=== PATIENT | female | born 1935 | race Caucasian/White ===

== ENCOUNTER 2016-09-16 18:52 | Observation (INO) | payer MEDICARE, OTHER ==
[~2016-09-16] VITALS: Ht 160 cm; Wt 64.0 kg
[2016-09-16 19:00] VITALS: BP 152/113; PULSE 74; RESP 17
--- NOTE | 2016-09-16 19:04 | ED.REPORT ---
HPI-Neurologic Deficit Date of Service Sep 16, 2016 ED Provider: Ronan Patel DO Pt is an 81 year old female with a history of CVA, and HTN who presents to the ED complaining of perioral numbness onset this morning. She c/o associated numbness in her hands, and headache. The family reports that the pt had a stroke on 08/11/16, and had recently been discharged from rehab. The pt was also cleared to walk without her walker. Later tonight, the pt got up to go to the bathroom, when she grabbed her walker and started trying to walk on the dog which is abnormal for her. The pt was taking Plavix and Aspirin for 30 days, and was taken off of Aspirin yesterday. Nursing Notes Stated Complaint: HEADACHE,ANXIETY Chief Complaint: Neuro Symptoms/ Deficits Nursing Notes Reviewed: Yes Allergies: Coded Allergies: sumatriptan (Verified Allergy, Unknown, Due to CVA, 09/16/16) indomethacin (Verified Adverse Reaction, Unknown, Nausea, 09/16/16) Scheduled Allopurinol (Allopurinol) 300 Mg Tablet 300 MG PO DAILY Aspirin (Aspirin) 81 Mg Tablet 81 MG PO DAILY Atorvastatin (Lipitor) 20 Mg Tablet 20 MG PO HS Calcium Carbonate/Vitamin D3 (Calcium 500 + Vit D 200 Tablet) 1 Each Tablet 1 EACH PO TID Clopidogrel (Clopidogrel) 75 Mg Tablet 75 MG PO DAILY Cyanocobalamin (Vitamin B12) 500 Mcg Tablet 1,000 MCG PO every other day Famotidine (Pepcid) 20 Mg Tablet 20 MG PO DAILY Gabapentin (Gabapentin) 300 Mg Capsule 300 MG PO TID Metoprolol Succinate ER (Metoprolol Succinate ER) 25 Mg Tab.er.24h 25 MG PO HS Multivitamin,Therapeutic (Thera) 1 Each Tablet 1 EACH PO DAILYWM [place]-3/Dha/Epa/Fish Oil (Fish Oil 1,000 mg Softgel) 1 Each Capsule 1 EACH PO DAILY Sennosides/Docusate Sodium (Senna-Docusate Sodium Tablet) 1 Each Tablet 1 EACH PO BID Thiamine Mononitrate (Vitamin B-1) 100 Mg Tablet 100 MG PO DAILY Scheduled PRN Acetaminophen (Acetaminophen) 325 Mg Tablet 650 MG PO Q6H PRN PRN For Pain Amoxicillin (Amoxicillin) 500 Mg Tablet 2,000 MG PO ONCE PRN PRN dental appointment Melatonin (Melatonin 1 mg Tablet) 1 Each Tablet 3 MG PO HS PRN PRN Insomnia General Time Seen by Provider: 19:04 Chief Complaint Other (Numbness face) Hx Obtained From: Patient Arrived By: Walk-in Sudden in Onset?: No Onset Occurred: 1 - 4 hours ago Symptom Duration: Duration unknown Location: : Head Quality: Painful Severity: Current: No pain currently Severity: Maximum: Moderate Recent Healthcare: Recent doctor visit, Recent hospitalization Similar Sx Previous: Yes Past Medical History Past Medical History CVA - 08/11/16 HTN Denies: Congestive heart failure, Diabetes mellitus Past Surgical History Bilateral hip Hysterectomy Smoking History Unknown if Ever Smoker Social History Alcohol Use: Denies alcohol use Drug Use: Denies drug use Other Social History: Good social support Ambulatory Status Independent Review of Systems Respiratory: Denies: Non-productive cough, Shortness of breath Neurologic: Reports: Confusion, Headache, Numbness Complete sys rev & neg: except as marked. Physical Exam Initial Vital Signs Vital Signs (First) Date Time Temp Pulse Resp B/P Pulse Ox O2 Delivery O2 Flow Rate FiO2 09/16/16 19:00 36.8 74 17 152/113 09/16/16 21:23 96 Room Air Initial VS: Reviewed ENT: Mucous membranes moist, Conjunctiva normal, No scleral icterus Neck: Supple, Full range of motion Abdomen / GI: Soft, Non-tender Extremities: Vascular intact, Neuro intact Skin: Warm, Dry, No cyanosis Psychiatric: Mood/affect normal, Behavior normal General/Constitutional: Awake, Alert, Cooperative, Not toxic appearing Head / Eyes: Atraumatic, Normocephalic, PERRL, EOMI Respiratory / Chest: Atraumatic, Breath sounds NL, Breath sounds = bilat Cardiovascular: Heart rate NL, Regular rhythm, Heart sounds NL Neurologic: Oriented X3, Speech NL, CN II - XII intact Possible decreased sensation in the palm of her right hand Interpretation & Diagnostics Lab Results Interpretation Result Diagram: 09/16/16190909/16/161909 Test 09/16/16 19:10 09/16/16 20:25 White Blood Count 7.1th/mm3 (3.8-10.1) Red Blood Count 4.44mil/mm3 (3.90-5.20) Hemoglobin 13.5g/dL (12.0-15.6) Hematocrit 40.9% (35.0-46.0) Mean Corpuscular Volume 92.1fL (81-100) Mean Corpuscular Hemoglobin 30.4pg (27.0-35.0) Mean Corpuscular Hemoglobin Concent 33.0% (32.0-37.0) Red Cell Distribution Width 14.2% (12.3-15.4) Platelet Count 283bil/L (150-400) Neutrophils (%) (Auto) 60.0% (40-74) Lymphocytes (%) (Auto) 27.4% (14-46) Monocytes (%) (Auto) 9.1% (4-12) Eosinophils (%) (Auto) 2.8% (0-5) Basophils (%) (Auto) 0.6% (0-3) Prothrombin Time 10.2sec (8.1-12.5) Prothromb Time International Ratio 0.95ratio Sodium Level 134mEq/L (134-144) Potassium Level 3.6mEq/L (3.5-5.2) Chloride Level 96mEq/L (97-108) Carbon Dioxide Level 25mmol/L (18-29) Blood Urea Nitrogen 12mg/dL (8-27) Creatinine 0.77mg/dL (0.57-1.00) Estimat Glomerular Filtration Rate 103mL/min (>59) Glucose Level 108mg/dL (60-99) Calcium Level 10.1mg/dL (8.5-10.1) Magnesium Level 1.8mg/dL (1.6-2.6) Total Bilirubin 0.5mg/dL (0.0-1.2) Aspartate Amino Transf (AST/SGOT) 25U/L (0-50) Alanine Aminotransferase (ALT/SGPT) 26U/L (0-32) Alkaline Phosphatase 68U/L (25-165) Troponin T < 0.010ug/L (0.0-0.011) Total Protein 6.7g/dL (6.4-8.4) Albumin 4.1g/dL (3.4-5.0) Triglycerides Level 139mg/dL (0-149) Cholesterol Level 142mg/dL (100-199) LDL Cholesterol, Calculated 61.200mg/dL (0-99) VLDL Cholesterol 27.800mg/dL HDL Cholesterol 53mg/dL (>39) Cholesterol/HDL Ratio 2.68 (0.0-4.4) Urine Color Yellow (YELLOW) Urine Appearance Clear (CLEAR,HAZY) Urine pH 8.0 (5.0-8.0) Urine Specific [place] 1.010 (1.003-1.035) Urine Protein Negativemg/dL (NEG,TRACE) Urine Glucose (UA) Negativemg/dL (NEGATIVE) Urine Ketones Negativemg/dL (NEGATIVE) Urine Occult Blood Negative (NEGATIVE) Urine Nitrite Negative (NEGATIVE) Urine Bilirubin Negative (NEGATIVE) Urine Urobilinogen Normalmg/dL (NORMAL) Urine Leukocyte Esterase Small (NEGATIVE) Urine RBC 0-2/hpf (0-2) Urine WBC 0-5/hpf (0-5) Urine Epithelial Cells Few/hpf (NONE-MOD) Urine Crystals None seen (NONE SEEN) Urine Bacteria Few/hpf (NONE-FEW) Urine Hyaline Casts None/lpf (NONE) Urine Granular Casts None seen (NONE SEEN) Urine Waxy Casts None seen (NONE SEEN) Urine Red Blood Cell Casts None seen (NONE SEEN) Urine White Blood Cell Casts None seen (NONE SEEN) Urine Mucus None seen (None Seen) Urine Trichomonas None seen (NONE SEEN) Urine Yeast None (NONE SEEN) Urinalysis Comment None ECG Interpretation ECG Interpretation: Sinus rhythmw with a rate of 66. Low voltage, precordial leads Time: 19:15 Interpreted by: ED physician X-Ray Chest Interpretation Chest Xray Interpretation: IMPRESSION: No acute cardiopulmonary disease process. Dictated by: Hortensia Aranda MD, PhD on 09/16/2016 at 20:00 View: Portable, 1 view Interpretation / Wet Read by: Interpret - Radiologist CT Head Interpretation IMPRESSION: No acute intracranial disease process. Dictated by: Hortensia Aranda MD, PhD on 09/16/2016 at 19:59 Study: Head CT no contrast Interpretation / Wet Read by: Interpret - Radiologist Re-Eval/Medical Decision Med Decision/Clinical Course Completely resolved stroke symptoms. Negative head CT. TIA diagnosed. Aspirin therapy initiated. Will be admitted to the hospitalist service for further evaluation and treatment. Re-Evaluation/Progress : Time of Eval: 20:54 Re-Evaluation/Progress Note: Pt rechecked. Informed pt of plan for admission. Pt understands and agrees with plan for admission. All questions addressed Consultation : Referral / Consult Name: Kory Elliott MD Consulted With: Hospitalist Call Returned at: 20:54 Voice Coach: Will see patient, Agrees with eval, Agrees with plan, Accepts admit Counseled Regarding: Diagnosis, Lab results, Need for admission Discharge & Departure Impression: Primary Impression: TIA (transient ischemic attack) Transient cerebral ischemia type: unspecified Qualified Code: G45.9 - Transient cerebral ischemic attack, unspecified Disposition: ADMITTED TO HOSPITAL Discharge Condition All VS Reviewed: Yes Condition: Stable Referrals: Ivonne Ng MD (PCP) Scribe Attestation Portions of this note were transcribed by Ramandeep Mehta. I, Dr. Patel personally performed the history, physical exam and medical decision-making; I reviewed and confirmed the accuracy of the information in the transcribed note. Signed by: Sonido Malik, 09/16/16 and 21:50. copies to: Ivonne Ng MD, Todd P DO Sep 16, 2016 19:04 Ramandeep Mace Sep 16, 2016 19:25
[2016-09-16 19:13] LABS: BASOPHILS % (AUTO) 0.6 % (0-3); EOSINOPHILS % (AUTO) 2.8 % (0-5); MONOCYTES % (AUTO) 9.1 % (4-12); Mean Corpuscular Hemoglobin 30.4 pg (27.0-35.0); Mean Corpuscular Volume 92.1 fL (81-100); Platelet Count 283 bil/L (150-400)
[2016-09-16 19:32] LABS: INR 0.95 ratio
[2016-09-16 19:47] LABS: TROPONIN T < 0.010 ug/L (0.0-0.011)
[2016-09-16 19:49] LABS: Magnesium 1.8 mg/dL (1.6-2.6)
--- NOTE | 2016-09-16 20:01 | DRSVH ---
PROCEDURE: CT BRAIN WITHOUT CONTRAST ([id number]) INDICATIONS: headache and confusion TECHNIQUE: Noncontrast 4.5 mm thick angled axial sections acquired from the foramen magnum to the vertex, with c oronal reformats. COMPARISON: None. FINDINGS: Image quality: Limited by motion artifact. CSF spaces: Basal cisterns are patent. No extra-axial fluid collections. The ventricles are symmet iain in size and shape. Brain: No intracranial bleeds or masses. There is cerebral volume loss for age, with resultant vent ricular and sulcal prominence. There are periventricular and deep white matter chronic small vessel ischemic changes. There is intracranial internal carotid artery and vertebral artery atherosclerosis . Skull and face: Calvarium and visualized facial bones appear intact, without suspicious lesions. Sinuses: Visualized sinuses and mastoids are clear. IMPRESSION: No acute intracranial disease process. Dictated by: Hortensia Aranda MD, PhD on 09/16/2016 at 19:59 Approved by: Hortensia Aranda MD, PhD on 09/16/2016 at 20:00
--- NOTE | 2016-09-16 20:02 | DRSVH ---
PROCEDURE: X-RAY CHEST ONE VIEW, PORTABLE ([id number]) INDICATIONS: altered mental status TECHNIQUE: One view of the chest was acquired. COMPARISON: None. FINDINGS: Surgical changes and devices: None. Lungs and pleura: No pleural effusions or pneumothorax. Lungs are clear. Eventration of right hemid iaphragm noted. Mediastinum: Mediastinal contours appear normal. Heart size is normal. Bones and chest wall: No suspicious bony lesions. Overlying soft tissues appear unremarkable. IMPRESSION: No acute cardiopulmonary disease process. Dictated by: Hortensia Aranda MD, PhD on 09/16/2016 at 20:00 Approved by: Hortensia Aranda MD, PhD on 09/16/2016 at 20:01
[2016-09-16 21:05] LABS: APPEARANCE,URINE CLEAR (CLEAR,HAZY); COLOR,URINE YELLOW (YELLOW); OCCULT BLOOD,URINE NEGATIVE (NEGATIVE); UROBILINOGEN,URINE NORMAL (NORMAL)
[2016-09-16 21:23] VITALS: BP 134/37; PULSE 75; RESP 17; O2SAT 96
[2016-09-16] MEDS ORDERED: MELA1TAB10 PO (21:36)
[2016-09-16] MEDS ORDERED: CYAN500 PO (21:36)
[2016-09-16] MEDS ORDERED: FAMO20T PO (21:36)
[2016-09-16] MEDS ORDERED: CALC-72 PO (21:36)
[2016-09-16] MEDS ORDERED: OMEG-38 PO (21:36)
[2016-09-16] MEDS ORDERED: METO25TA99 PO (21:36)
[2016-09-16] MEDS ORDERED: SENN1TAB90 PO (21:36)
[2016-09-16] MEDS ORDERED: THIA100T64 PO (21:36)
[2016-09-16] MEDS ORDERED: ASPI-973 PO (21:36)
[2016-09-16] MEDS ORDERED: ACET325T51 PO (21:36)
[2016-09-16] MEDS ORDERED: GABA-502 PO (21:36)
[2016-09-16] MEDS ORDERED: AMOX500T2 PO (21:36)
[2016-09-16] MEDS ORDERED: ATOR20TA PO (21:36)
[2016-09-16] MEDS ORDERED: MULT-676 PO (21:36)
[2016-09-16] MEDS ORDERED: ALLO300T2 PO (21:36)
[2016-09-16] MEDS ORDERED: CLOP75TA28 PO (21:36)
[2016-09-16] MEDS ORDERED: Polyethylene Glycol (PEG) 17 Gm Powder PO PRN (21:45)
[2016-09-16] MEDS ORDERED: Alum-Mag Hydrox-Simeth 30 mL Suspension PO PRN (21:45)
[2016-09-16] MEDS ORDERED: Ondansetron 2 mg/mL 2 mL Inj IVPUSH PRN (21:45)
[2016-09-16 22:00] VITALS: BP 130/43; PULSE 71; RESP 16; O2SAT 97
[2016-09-16 22:23] VITALS: BP 155/62; PULSE 70; RESP 16; O2SAT 94
[2016-09-16 22:42] VITALS: PULSE 66
[2016-09-17] MEDS ORDERED: Labetalol 5 mg/mL 20 mL Inj IV PRN (00:30)
[2016-09-17 01:13] VITALS: BP 117/53; PULSE 59; RESP 18; O2SAT 93
--- NOTE | 2016-09-17 02:02 | PCM.HPMED ---
Subjective Date of Service Sep 17, 2016 Primary Provider: Admitting Physician: Kory Elliott MD Primary Care Physician: Maureen Carter PA-C Attending Physician: Kory Elliott MD Chief Complaint: Numbness in extremities, confusion History of Present Illness: 81-year-old woman with history of CVA, hypertension, presented to the [facility] emergency department complaining of bilateral hand numbness and tingling as well as perioral numbness. Symptoms began this morning after doing physical therapy, she had associated headache. Family reports that she had a stroke on August 11 with similar symptoms had been discharged from rehabilitation and continues to do her exercises. She had been on Plavix and daily aspirin, per instructions she discontinued taking the aspirin after 1 month, reportedly has been without it for 5 days, continues on Plavix. Today after exercises she reportedly was walking around with her walker around the house and started walking towards the dog bed and when asked what she is doing she said she was trying to go to the restroom, she was not coherent, was confused, and disoriented. Per family this is also similar to her mental status during her first stroke. She went to [facility], evaluated her and deemed that she had a TIA as symptoms gradually resolved on their own. At home she once again had recurrence of bilateral hand tingling and numbness, and they opted to come to [facility]. Brain CT was performed which showed no acute intracranial disease. She denies any falls, lightheadedness dizziness, previously had nausea but that has resolved, no vomiting, no constipation or diarrhea, no chest pain, shortness of breath, no longer has any numbness tingling weakness in arms and legs, no changes in vision. On presentation to the [facility] emergency department 36.8 Celsius , 74, 17, 152/113. CBC unremarkable chloride 96, glucose 106 troponin negative, CMP otherwise unremarkable, INR 0.95 Urine small leukocyte esterase, few epithelial cells few bacteria. EKG sinus rhythm, heart rate 66, normal axis, no intraventricular conduction delay, no signs of acute ischemia or infarct. She was given aspirin in the emergency department, and admitted for observation and further evaluation for now resolved strokelike symptoms. Allergies Coded Allergies: sumatriptan (Verified Allergy, Unknown, Due to CVA, 09/16/16) indomethacin (Verified Adverse Reaction, Unknown, Nausea, 09/16/16) Home Medications Scheduled Allopurinol (Allopurinol) 300 Mg Tablet 300 MG PO DAILY Aspirin (Aspirin) 81 Mg Tablet 81 MG PO DAILY Atorvastatin (Lipitor) 20 Mg Tablet 20 MG PO HS Calcium Carbonate/Vitamin D3 (Calcium 500 + Vit D 200 Tablet) 1 Each Tablet 1 EACH PO TID Clopidogrel (Clopidogrel) 75 Mg Tablet 75 MG PO DAILY Cyanocobalamin (Vitamin B12) 500 Mcg Tablet 1,000 MCG PO every other day Famotidine (Pepcid) 20 Mg Tablet 20 MG PO DAILY Gabapentin (Gabapentin) 300 Mg Capsule 300 MG PO TID Metoprolol Succinate ER (Metoprolol Succinate ER) 25 Mg Tab.er.24h 25 MG PO HS Multivitamin,Therapeutic (Thera) 1 Each Tablet 1 EACH PO DAILYWM [place]-3/Dha/Epa/Fish Oil (Fish Oil 1,000 mg Softgel) 1 Each Capsule 1 EACH PO DAILY Sennosides/Docusate Sodium (Senna-Docusate Sodium Tablet) 1 Each Tablet 1 EACH PO BID Thiamine Mononitrate (Vitamin B-1) 100 Mg Tablet 100 MG PO DAILY Scheduled PRN Acetaminophen (Acetaminophen) 325 Mg Tablet 650 MG PO Q6H PRN PRN For Pain Melatonin (Melatonin 1 mg Tablet) 1 Each Tablet 3 MG PO HS PRN PRN Insomnia PMH CVA 08/11/2069 Hypertension Surgical History Bilateral hip replacements Total hysterectomy Family History Father had COPD and from complications Social History Hx Alcohol Use: No Hx Substance Use: No Smoking Status: Never Smoker Living Arrangement: with Family Exam Vital Signs Vital Sign - Last Date Time Temp Pulse Resp B/P Pulse Ox O2 Delivery O2 Flow Rate FiO2 09/17/16 01:13 36.5 59 18 117/53 93 Room Air Exam General: Laying in bed, no apparent distress. Age-appropriate HEENT: Normocephalic, atraumatic, EOMI grossly, mucous membranes moist, neck supple without lymphadenopathy, PERRLA. Cardiovascular: Regular rate and rhythm, no clicks murmurs rubs, peripheral pulses 2/4 equal bilaterally Pulmonary: Clear to auscultation bilaterally, no W/R/R. Abdominal: Soft to palpation, bowel sounds present 4, no hepatosplenomegaly. Negative rebound. Extremities: No edema appreciated. No tenderness, asymmetry. Neuro: Neurologically grossly intact, strength is equal bilaterally upper and lower extremities. No numbness sensation equal bilaterally, MSK: Able to move extremities on their own volition, strength 5 out of 5 equal bilaterally to upper and lower extremities. Psychiatric: Oriented person place time and situation, appropriate mood and affect. Lab and Diagnostics Result Diagram: 09/16/16190909/16/161909 X-Rays, CTs and MRIs CT brain without contrast performed 09/16/2016 IMPRESSION: No acute intracranial disease process. Dictated by: Hortensia Aranda MD, PhD on 09/16/2016 at 19:59 Chest x-ray performed 09/16/2016 IMPRESSION: No acute cardiopulmonary disease process. Dictated by: Hortensia Aranda MD, PhD on 09/16/2016 at 20:00 12-lead ECG EKG sinus rhythm, heart rate 66, normal axis, no intraventricular conduction delay, no signs of acute ischemia or infarct. Assessment & Plan 81-year-old woman with history of CVA, hypertension experienced numbness in bilateral hands, perioral numbness, and confusion following physical exercises, symptoms reoccurred following initial evaluation, and have once again abated. Acute transient ischemic attack, POA, stable Neurologic symptoms, confusion, on Plavix, stop taking aspirin [address] negative for bleed Symptoms have completely resolved Carotid duplex Echocardiogram, -reportedly was not performed during hospitalization for her stroke on 08/11/2016 Neurology consultation Daily aspirin, continue clopidogrel, continue home atorvastatin 20 mg by mouth at bedtime. Lipid Panel. PT/OT Speech therapy/swallow eval Hypertension, chronic, POA, stable 152/113 on presentation, decreased to 117/53 with sleep Hold metoprolol to allow permissive hypertension, Continue to monitor Patient admitted under observation status with expected length of stay less than 2 midnights for severity of present symptoms, complexities of treatment plan and risk for adverse events Pain Evaluation: Adequate Pain Control GI Prophylaxis: H2 yani, Not indicated VTE Prophylaxis: Sub-Q Heparin (Unfractionated) Resuscitation Status: CPR: Attempt Resuscitation Attending Statement The patient was seen and examined together with Dr. Mendez on 09/16 and I agree with the history, exam and plan as outlined in the note above. Cortes Guerrier DO Sep 17, 2016 02:01 Kory Elliott MD Sep 17, 2016 03:33
[2016-09-17] MEDS: Heparin 5,000 Unit/mL Inj SUBQ SCH ×3 (03:07→16:29)
[2016-09-17 05:36] VITALS: BP 139/66; PULSE 58; RESP 16; O2SAT 95
[2016-09-17 06:02] LABS: BASOPHILS % (AUTO) 0.5 % (0-3); Mean Corpuscular Hemoglobin 30.6 pg (27.0-35.0); Mean Corpuscular Volume 93.2 fL (81-100); NEUTROPHILS % (AUTO) 58.8 % (40-74); Platelet Count 267 bil/L (150-400)
--- NOTE | 2016-09-17 06:13 | NUR ---
Admission Pt arrived to room 3015 alert and oriented x3, accompanied by family, Pt conversing in full sentences and able to make needs known. Pt had no c/o pain or discomfort, was able to stand on standing scale and transfer to new bed with 1PA hands on for steadying Pt. Pt was oriented to room, call light, bed and policies. 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 Pt had unsteady gait but had strength and was able to achieve standing positing form bed with little to no assistance. Pt has been up to [facility] several times tonight.
[2016-09-17] MEDS: Senna-Docusate 8.6-50 mg Tablet PO SCH ×2 (09:16→20:22)
[2016-09-17] MEDS: Omega-3 Fatty Acids 1,000 mg Capsule PO SCH (09:17)
--- NOTE | 2016-09-17 10:39 | NUR ---
Evaluation completed. Please go to "Notes" then click on "Assessments and Notes" (bottom left corner of screen). Then select appropriate discipline tab on top of screen.
--- NOTE | 2016-09-17 10:52 | NUR ---
Case Management: JANES given and explained to pt. Dilcia POOLE RN
--- NOTE | 2016-09-17 11:56 | DRSVH ---
PROCEDURE: US BILATERAL DUPLEX DOPPLER IMAGING OF THE CAROTIDS ([id number]) INDICATIONS: R/O Carotid Disease if no MRA or CTA Neck TECHNIQUE: Color and pulse Doppler interrogation was performed of both carotid systems, with image documentation and velocity measurements. COMPARISON: None. FINDINGS: All stenosis calculations are based on NASCET criteria. Right side: Brachial blood pressure: 155/62 mm Hg. Common Carotid Artery(Distal) PSV: 58.90 cm/s Internal Carotid Artery PSV- Proximal: 48.90 cm/s Mid-lon.30 cm/s Distal: 55.30 cm/s EDV - Proximal: 11 cm/s Mid-lon.30 cm/s Distal: 9 cm/s External Carotid Artery(Proximal) PSV: 130.50 cm/s ICA/CCA PSV ratio: 1.4 Vanegas scale imaging description: Minimal plaque. Percent internal carotid artery stenosis: Less than 50% stenosis. Vertebral artery: Flow direction is antegrade. Left side: Brachial blood pressure: Not obtained. Common Carotid Artery(Distal) PSV: 83.50 cm/s Internal Carotid Artery PSV - Proximal: 64.30 cm/s Mid-lon.50 cm/s Distal: 88.70 cm/s EDV - Proximal: 16.10 cm/s Mid-lon.80 cm/s Distal: 22.50 cm/s External Carotid Artery(Proximal) PSV: 74.40 cm/s ICA/CCA PSV ratio: 1.2 Vanegas scale imaging description: Minimal scattered plaque. Percent internal carotid artery stenosis: Less than 50% stenosis Vertebral artery: Flow direction is antegrade. IMPRESSION: Less than 50% bilateral internal carotid artery stenosis. Dictated by: Ihsmael Harrison [facility] Interpreted: Es Richards MD on 09/17/2016 at 8:21 Approved by: Es Richards M.D. on 09/17/2016 at 11:54
[2016-09-17 14:05] VITALS: BP 145/64; PULSE 70; RESP 18; O2SAT 95
--- NOTE | 2016-09-17 14:09 | DRSVH ---
PROCEDURE: MRI STROKE PROTOCOL ([id number]) Pre- and post-contrast brain MRI, non-contrast brain MR angiogram, pre- and postcontrast neck MR erin ogram INDICATIONS: TIA , slurry speech, UE tingling/numbness TECHNIQUE: Brain: Noncontrast axial T1 spin echo, axial T2 fast spin echo, sagittal and axial FLAIR, coronal T2 fast spin echo, axial gradient echo, axial diffusion and ADC through the brain. After the administr ation of contrast, axial 3D VIBE of the cranial vasculature and brain. Brain MRA: Non-contrast 3-D time of flight MR angiogram, with multiple cwiimvw-qbusjcrok-rgjepyrqhw (MIP) reformats performed. Neck MRA: Axial and sagittal TruFISP through the neck. Coronal dynamic MR angiogram during administ ration of contrast in the arterial and venous phases, with 3-dimenstional mrwwlyy-xvwtpihsy-prmmwktrl n (MIP) reformats constructed from subtraction images. COMPARISON: [facility], CT, CT BRAIN WO CON, 09/16/2016, 19:21. FINDINGS: Image quality: The neck angiogram is nondiagnostic due to malfunction of the power injector. BRAIN: CSF spaces: Ventricles are normal in size and shape. Basal cisterns are patent. No extra-axial flu id collections. Brain: There is moderate-sized subacute infarct in the left parietal lobe with T2/FLAIR hyperintensi ty along the cerebral sulci consistent with residual cerebral edema. There is abnormal enhancement al yusra the olivarez-white interface in the left parietal lobe compatible with laminar necrosis. There is inc reased signal on diffusion weighted images without decreased ADC, compatible with T2 shine through. N o intracranial bleeds or mass effects. There is mild cerebral volume loss. Mild periventricular whit e matter chronic small vessel ischemic changes are present. Brainstem appears normal. Normal intrava scular flow voids are present Skull and face: Calvarial marrow signal is normal. Orbits appear normal. Sinuses: Sinuses and mastoids are clear. BRAIN MR ANGIOGRAM: Anterior circulation: Intracranial internal carotid arteries are normal in size and enhancement. Th ere is 30% stenosis of the left Petrous segment internal carotid artery at the skull base. No signifi cant stenosis in the right internal carotid artery. The flow within the paired anterior cerebral dexter ciro is normal and symmetric. The flow within the middle cerebral arteries is normal and symmetric. The anterior communicating artery is seen. No stenoses, occlusions, or aneurysms. Posterior circulation: The visualized portions of the vertebral arteries demonstrate normal caliber, and join to form a normal appearing basilar artery. The flow within the posterior cerebral arteries is normal and symmetric. No stenoses, occlusions, or aneurysms. NECK MR ANGIOGRAM: Neck MR angiogram is nondiagnostic due to power injector failure. There is enlarg ed right thyroid lobe with nodules. IMPRESSION: BRAIN MRI: 1. A moderate-sized late subacute infarct involving the left parietal lobe. 2. Mild cerebral volume loss and chronic microvascular ischemic changes. BRAIN MR ANGIOGRAM: 1. ~30% of the petrous segment of the left internal carotid artery at the skull base. 2. No significant stenosis in the right internal carotid artery. 3. Normal posterior circulations. NECK MR ANGIOGRAM: 1. Nondiagnostic due to malfunctioning of the power injector. 2. Enlarged right thyroid lobe with nodules. Non-urgent outpatient thyroid ultrasound suggested for gerson taylor. The estimate of stenosis included in the report of the imaging study was calculated using the NASCET method Dictated by: Es Richards M.D. on 09/17/2016 at 13:54 Transcribed by: YUAN on 09/17/2016 at 14:09 Approved by: Es Richards M.D. on 09/17/2016 at 15:56
--- NOTE | 2016-09-17 14:35 | NUR ---
Social Work-initial assessment: Data:See initial assessment. Pt is a 81 y/o female who was admitted on 09/16/16 for TIA per H&P. Pt's insurance is [employer] out of [facility] and PCP is [place] Blackwell. EMR reviewed. MAURO met with pt and yovani Rizzo [phone] at bedside, SW role explained. Pt is alert and oriented x3. Pt resides at home with her niece Ursula where she remains independent with ADLS. Pt does not drive and uses cane and fww at baseline. Pt has no HH or SNF history. Pt has been to [facility] in rehab in July. Pt has no custodial care insurance or VA benefits. SW discussed DPOA/ advanced directive, pt confirms this has been completed, SW encouraged a copy to be brought in. PT/ST/OT are all pending. Pt's family to provide transport home at discharge. SW placed phone number and plan on white board in room. SW will continue to follow. Assessment:Pt who is independent at baseline. Plan:Pt to discharge home when medically stable via POV. PT/ST/OT are all pending. SW will continue to follow. VIKKI Weber Addendum: 09/17/16 at 1440 by JUAN F ECHOLS Amended: Links added.
--- NOTE | 2016-09-17 15:07 | NUR ---
Evaluation completed. Please go to "Notes" then click on "Assessments and Notes" (bottom left corner of screen). Then select appropriate discipline tab on top of screen.
[2016-09-17 15:54] VITALS: PULSE 68
--- NOTE | 2016-09-17 15:59 | PCM.PNMED ---
Subjective Date of Service Sep 17, 2016 Subjective Patient reports nearly complete resolution of symptoms experienced on presentation. Slurred speech had resolved an emergency room, upper extremity symptoms of numbness and tingling had resolved even prior to presentation. Is lying in bed comfortably, is a good appetite, has dizziness lightheadedness headache or other complaints. Exam Vital Signs Vital Sign - Last Date Time Temp Pulse Resp B/P Pulse Ox O2 Delivery O2 Flow Rate FiO2 09/17/16 14:05 36.3 70 18 145/64 95 Room Air Intake and Output 09/16/16 09/16/16 09/17/16 Cumulative From/Thru 15:00 23:00 07:00 09/16/16 19:00 - 09/17/16 06:48 Intake Total 350 ml 350 ml Output Total 925 ml 925 ml Balance -575 ml -575 ml Intake Oral 350 ml 350 ml Output Urine Total 925 ml 925 ml General: Alert, Oriented X3, Cooperative, No Acute Distress Eyes: PERRLA, EOMI Neck: Supple Chest & Lungs: Clear to auscultation & percussion Cardiovascular: Regular Rate/Rhythm Neurological: Grossly Neurologically Intact, Cranial Nerves 2-12 Intact, Normal Speech IVs and Medications Medications Reviewed: Medications were reviewed in detail Lab and Diagnostics Result Diagram: 09/17/16 0526 09/17/16 0526 X-Rays, CTs and MRIs CT brain without contrast performed 09/16/2016 IMPRESSION: No acute intracranial disease process. Dictated by: Hortensia Aranda MD, PhD on 09/16/2016 at 19:59 Chest x-ray performed 09/16/2016 IMPRESSION: No acute cardiopulmonary disease process. Dictated by: Hortensia Aranda MD, PhD on 09/16/2016 at 20:00 12-lead ECG EKG sinus rhythm, heart rate 66, normal axis, no intraventricular conduction delay, no signs of acute ischemia or infarct. Assessment & Plan 81-year-old woman with history of CVA, hypertension experienced numbness in bilateral hands, perioral numbness, and confusion following physical exercises, symptoms reoccurred following initial evaluation, and have once again abated. Acute transient ischemic attack, POA, stable Neurologic symptoms, confusion, on Plavix, stop taking aspirin 5 days ago as per accommodations following last stroke. Head CT negative for bleed. MRI of rain does demonstrate late subacute infarct does not appear to demonstrate any new areas of infarction Symptoms have completely resolved as per patient of my evaluation Carotid duplex ordered and pending Echocardiogram, -reportedly was not performed during hospitalization for her stroke on 08/11/2016- also ordered and pending Neurology consultation Dr. Javed remains pending which is greatly appreciated. Daily aspirin, continue clopidogrel, continue home atorvastatin 20 mg by mouth at bedtime. PT/OT Speech therapy/swallow eval Hypertension, chronic, POA, stable 152/113 on presentation, decreased to 117/53 with sleep Hold metoprolol to allow permissive hypertension, Continue to monitor, stable at this time Pain Evaluation: Adequate Pain Control GI Prophylaxis: H2 yani, Not indicated VTE Prophylaxis: Sub-Q Heparin (Unfractionated) VTE Mechanical Devices: Intermittant Pneumatic CD Resuscitation Status: CPR: Attempt Resuscitation Time spent 25 minutes Derrell Sahu DO Sep 17, 2016 15:59
--- NOTE | 2016-09-17 17:27 | NUR ---
Daily Update Patient alert and oriented X4. Patient requires a SBA up to bathroom due to slightly unstable balance with ambulation. Patient did have some complaints of pain 3-5/10 to bilateral legs. Patient has been voiding well. Pleasant and cooperative with care.
--- NOTE | 2016-09-17 17:29 | DRSVH ---
[facility] [address] [place] [address] Echocardiogram Report Name: LUIS ARGUELLO JStudy Date: Height: 63 in Hospital Exam Location: [facility] Weight: 133 lb Gender: Female BSA: 1.6 m2 : 1935 Age: 81 yrs BP: 139/66 mm Hg Reason For Study: TIA Ordering Physician: HOSPITALIST [facility] Performed By: Juancarlos Jurado Referring Physician: WENDY RON Interpretation Summary The ejection fraction is estimated to be 60-65%. Injection of contrast documented no interatrial shunt. There is no significant valvular heart disease. Procedure: A two-dimensional transthoracic echocardiogram with color flow and Doppler was performed. The study quality was technically adequate. A saline contrast injection was performed to assess for cardiac shunting. The patient was in normal sinus rhythm during the exam. Left Ventricle: The left ventricle is normal in size, wall thickness, and systolic function without any focal wall motion abnormalities. The ejection fraction is estimated to be 60-65%. Left ventricular wall motion is normal. Right Ventricle: The right ventricle is normal in size and function. Atria: Both atria are normal in size. The interatrial septum is intact with no evidence for an atrial septal defect. Injection of contrast documented no interatrial shunt. Mitral Valve: The mitral valve leaflets appear thickened, but open well. There is trace mitral regurgitation. Aortic Valve: The aortic valve is trileaflet. The aortic valve opens well. The aortic valve is mildly calcified. There is no hemodynamically significant valvular aortic stenosis. No aortic regurgitation is present. Tricuspid Valve: The tricuspid valve is normal in structure and function. There is a trace or physiologic amount of tricuspid regurgitation. Pulmonic Valve: The pulmonic valve is not well seen, but is grossly normal. There is trace pulmonic regurgitation. Great Vessels: The aortic root is normal size. The ascending aorta is normal in size. The aortic arch is normal in size. The pulmonary artery is not well visualized, but is probably normal size. The IVC is of normal diameter and collapses greater than 50% with a sniff. This suggests a low right atrial pressure of 3 mm Hg. Pericardium/ Pleura There is no pericardial effusion. There is no pleural effusion. MMode/2D Measurements & Calculations LVIDd: 4.1 cm RA long axis LVOT diam: 2.2 cm LVIDs: 2.2 cm LA A2 area: 16.0 cm AoV Opening FS: 47.6 % LA A4 area: 19.1 cm RA area EPSS: 0.18 cm LA length (vol) Ao root diam IVSd: 0.77 cm : 15.6 cm LVPWd: 0.87 cm LA vol: 50.9 ml RA vol asc Aorta Diam LA vol index : 44.1 ml RA Ao Arch Diam (Prox : 31.3 ml/m2 : 27.1 mm2 Trans): 2.3 cm LV hermosillo. diameter/BSA LV sys. diameter/BSA RVD1 (basal) RVD2 (mid): 2.4 cm (cm/m^2): 2.5 (cm/m^2): 1.3 Doppler Measurements & Calculations Ao V2 max: 127.1 cm/sec MV E max luis MV E/A: 0.91 TR max luis Ao max P.5 mmHg : 77.1 cm/sec MV A dur : 225.4 cm/sec Ao mean P.6 mmHg MV A max luis : 0.09 sec TR max PG LVOT Max Luis : 85.1 cm/sec : 20.3 mmHg : 77.3 cm/sec PA V2 max : 66.8 cm/sec UCHE(I,D): 2.4 cm PA mean PG sev ratio: 0.64 : 0.95 mmHg PA Accel Time : 0.12 sec MV dec time: 0.16 sec Ao V2 mean LV V1 max PG PA V2 mean : 90.3 cm/sec : 45.6 cm/sec Ao V2 VTI: 26.5 cm LV V1 VTI : 17.0 cm UCHE(V,D): 2.3 cm2 UCHE indexed to BSA (cm^2/m^2): 1.5 Electronically signed by: Fredrick Del Valle on Reading Physician:09/17/2016 05:28 PM
[2016-09-17 18:16] VITALS: BP 143/66; PULSE 70; RESP 18; O2SAT 94
[2016-09-17 20:06] VITALS: BP 130/65; PULSE 74; RESP 16; O2SAT 96
[2016-09-18] VITALS (7 sets, daily range): BP systolic 125–146; BP diastolic 63–75; PULSE 65–83; RESP 16–18; O2SAT 93–95
[2016-09-18] MEDS: Heparin 5,000 Unit/mL Inj SUBQ SCH ×3 (00:32→17:21)
--- NOTE | 2016-09-18 05:25 | NUR ---
Uneventful Night: Pt rested through the night with no complaints of pain or discomfort. Denies SOB, n/v. Neuros' WNL. Non slip socks, bed alarm and SBA for safety. Call light within reach using appropriately. Frequent rounding in place. Pleasant and cooperative with care.
[2016-09-18] MEDS: Omega-3 Fatty Acids 1,000 mg Capsule PO SCH (07:40)
[2016-09-18] MEDS: Senna-Docusate 8.6-50 mg Tablet PO SCH (07:41)
--- NOTE | 2016-09-18 13:56 | NUR ---
Evaluation completed. Please go to "Notes" then click on "Assessments and Notes" (bottom left corner of screen). Then select appropriate discipline tab on top of screen.
--- NOTE | 2016-09-18 15:01 | PCM.PNMED ---
Subjective Date of Service Sep 18, 2016 Subjective Seen and evaluated at bedside. Symptoms entirely resolved pt has not complaints at this time Requesting discharge home. Exam Vital Signs Vital Sign - Last Date Time Temp Pulse Resp B/P Pulse Ox O2 Delivery O2 Flow Rate FiO2 09/18/16 13:59 36.4 73 18 142/68 95 Room Air Intake and Output 09/17/16 09/17/16 09/18/16 Cumulative From/Thru 15:00 23:00 07:00 09/16/16 19:00 - 09/18/16 06:51 Intake Total 1360 ml 200 ml 1910 ml Output Total 925 ml Balance 1360 ml 200 ml 985 ml Intake Oral 1350 ml 200 ml 1900 ml IV Total 10 ml 10 ml Output Urine Total 925 ml # Voids 6 3 9 # Bowel Movements 1 1 Exam Pt in no acute distress Nonfocal neurologic exam Unchanged since previous day. IVs and Medications Medications Reviewed: Medications were reviewed in detail Lab and Diagnostics Result Diagram: 09/17/16 0509/17/16 0526 X-Rays, CTs and MRIs CT brain without contrast performed 09/16/2016 IMPRESSION: No acute intracranial disease process. Dictated by: Hortensia Aranda MD, PhD on 09/16/2016 at 19:59 Chest x-ray performed 09/16/2016 IMPRESSION: No acute cardiopulmonary disease process. Dictated by: Hortensia Aranda MD, PhD on 09/16/2016 at 20:00 12-lead ECG EKG sinus rhythm, heart rate 66, normal axis, no intraventricular conduction delay, no signs of acute ischemia or infarct. Assessment & Plan 81-year-old woman with history of CVA, hypertension experienced numbness in bilateral hands, perioral numbness, and confusion following physical exercises, symptoms reoccurred following initial evaluation, and have once again abated. Acute transient ischemic attack, POA, stable Neurologic symptoms, confusion, on Plavix, stop taking aspirin 5 days ago as per accommodations following last stroke. Head CT negative for bleed. MRI of rain does demonstrate late subacute infarct does not appear to demonstrate any new areas of infarction Symptoms have completely resolved as per patient of my evaluation Carotid duplex ordered and pending Echocardiogram, -reportedly was not performed during hospitalization for her stroke on 08/11/2016- also ordered and pending Neurology consultation Dr. Javed remains pending which is greatly appreciated. Daily aspirin, continue clopidogrel, continue home atorvastatin 20 mg by mouth at bedtime. PT/OT Speech therapy/swallow eval Neurol eval pending as well: main question at this time is with coomorbid migraine headaches which can present similar to stroke, she is unsure when to seek medical attention? GIven lack of evidence for recurrent CVA, this most recent event may have in fact been a migraine type headache. Further complicating these diagnosis is the question of ideal migraine medications given risk of continued use of IMitrex acutely following CVA. Hypertension, chronic, POA, stable 152/113 on presentation, decreased to 117/53 with sleep Hold metoprolol to allow permissive hypertension, Continue to monitor, stable at this time GI Prophylaxis: H2 yani, Not indicated VTE Prophylaxis: Sub-Q Heparin (Unfractionated) VTE Mechanical Devices: Intermittant Pneumatic CD Resuscitation Status: CPR: Attempt Resuscitation Time spent 25 minutes Derrell Sahu DO Sep 18, 2016 15:01
--- NOTE | 2016-09-18 18:07 | NUR ---
Daily update Patient alert and oriented X4 with periods of forgetfulness. Patient cooperative with care. IV removed per MD orders due to discomfort to patient. Patient ambulated in hallway with PT and with family as well. Patient took all medications as ordered except calcium carbonate due to not taking this on a regular bases at home. Patient family in room with patient for most of day.
--- NOTE | 2016-09-18 19:01 | PCM.DC.MED ---
Discharge Summary Date of Service Sep 18, 2016 Dates of Hospitalization Date of Hospital Admission Sep 16, 2016 at 21:27 Date of Discharge: Sep 18, 2016 Providers: Admitting Physician: Kory Elliott MD Primary Care Physician: Maureen Carter PA-C Attending Physician: Kory Elliott MD Diagnosis at Time of Discharge Diagnosis at Time of Discharge Acute transient ischemic attack, POA, stable Migraine Headaches Hypertension, chronic, POA, stable Thyroid Nodules *(incidental finding_ Consultations Neurology - DR Javed Procedures XRay, CTs & MRIs CT brain without contrast performed 09/16/2016 IMPRESSION: No acute intracranial disease process. Dictated by: Hortensia Aranda MD, PhD on 09/16/2016 at 19:59 Chest x-ray performed 09/16/2016 IMPRESSION: No acute cardiopulmonary disease process. Dictated by: Hortensia Aranda MD, PhD on 09/16/2016 at 20:00 ECG 12 Lead EKG sinus rhythm, heart rate 66, normal axis, no intraventricular conduction delay, no signs of acute ischemia or infarct. Brief History As per HPI by admitting physician, "81-year-old woman with history of CVA, hypertension, presented to the [facility] emergency department complaining of bilateral hand numbness and tingling as well as perioral numbness. Symptoms began this morning after doing physical therapy, she had associated headache. Family reports that she had a stroke on August 11 with similar symptoms had been discharged from rehabilitation and continues to do her exercises. She had been on Plavix and daily aspirin, per instructions she discontinued taking the aspirin after 1 month, reportedly has been without it for 5 days, continues on Plavix. Today after exercises she reportedly was walking around with her walker around the house and started walking towards the dog bed and when asked what she is doing she said she was trying to go to the restroom, she was not coherent, was confused, and disoriented. Per family this is also similar to her mental status during her first stroke. She went to [facility], evaluated her and deemed that she had a TIA as symptoms gradually resolved on their own. At home she once again had recurrence of bilateral hand tingling and numbness, and they opted to come to [facility]. Brain CT was performed which showed no acute intracranial disease. She denies any falls, lightheadedness dizziness, previously had nausea but that has resolved, no vomiting, no constipation or diarrhea, no chest pain, shortness of breath, no longer has any numbness tingling weakness in arms and legs, no changes in vision. On presentation to the [facility] emergency department 36.8 Celsius , 74, 17, 152/113. CBC unremarkable chloride 96, glucose 106 troponin negative, CMP otherwise unremarkable, INR 0.95 Urine small leukocyte esterase, few epithelial cells few bacteria. EKG sinus rhythm, heart rate 66, normal axis, no intraventricular conduction delay, no signs of acute ischemia or infarct. She was given aspirin in the emergency department, and admitted for observation and further evaluation for now resolved strokelike symptoms." Hospital Course Acute transient ischemic attack, POA, stable Neurologic symptoms, confusion, on Plavix, stop taking aspirin 5 days ago as per accommodations following last stroke. Head CT negative for bleed. MRI of rain does demonstrate late subacute infarct does not appear to demonstrate any new areas of infarction Symptoms have completely resolved as per patient of my evaluation Carotid duplex unremarkable. Echocardiogram, -reportedly was not performed during hospitalization for her stroke on 08/11/2016- also ordered and pending Neurology consultation Dr. Javed remains pending which is greatly appreciated. Daily aspirin, continue clopidogrel, continue home atorvastatin 20 mg by mouth at bedtime. PT/OT Speech therapy/swallow eval Neurol eval states though CVA is not evidence, as a precaution she should remain on dual anti-platelet therpay at this time: ASA 81mg PO daily in addition to Plavix. Migraine Headache: May use Aspirin, up to 900mg in addition to Excedrin migraine as alternative to Imitrex which she should avoid at this time. If question exists between migraine or recurrent CVA, pt should seek emergency medical evaluation. Thyroid Nodules (incidental Finding) - previously identified. Biopsy has been scheduled and is pending. - Pt discussed this with Dr. Javed who believe pt may proceed with this as previously planned. Hypertension, chronic, POA, stable 152/113 on presentation, decreased to 117/53 with sleep Hold metoprolol to allow permissive hypertension, Continue to monitor, stable at this time Exam Vital Signs (Last) Date Time Temp Pulse Resp B/P Pulse Ox O2 Delivery O2 Flow Rate FiO2 09/18/16 13:59 36.4 73 18 142/68 95 Room Air Exam Pt in no acute distress Nonfocal neurologic exam Unchanged since previous day. Test 09/16/16 19:10 09/16/16 20:25 09/17/16 05:26 Prothrombin Time 10.2sec (8.1-12.5) Prothromb Time International Ratio 0.95ratio Hemoglobin A1c 5.5% (4.8-5.6) Magnesium Level 1.8mg/dL (1.6-2.6) Total Bilirubin 0.5mg/dL (0.0-1.2) Aspartate Amino Transf (AST/SGOT) 25U/L (0-50) Alanine Aminotransferase (ALT/SGPT) 26U/L (0-32) Alkaline Phosphatase 68U/L (25-165) Troponin T < 0.010ug/L (0.0-0.011) Total Protein 6.7g/dL (6.4-8.4) Albumin 4.1g/dL (3.4-5.0) Triglycerides Level 139mg/dL (0-149) Cholesterol Level 142mg/dL (100-199) LDL Cholesterol, Calculated 61.200mg/dL (0-99) VLDL Cholesterol 27.800mg/dL HDL Cholesterol 53mg/dL (>39) Cholesterol/HDL Ratio 2.68 (0.0-4.4) Urine Color Yellow (YELLOW) Urine Appearance Clear (CLEAR,HAZY) Urine pH 8.0 (5.0-8.0) Urine Specific [place] 1.010 (1.003-1.035) Urine Protein Negativemg/dL (NEG,TRACE) Urine Glucose (UA) Negativemg/dL (NEGATIVE) Urine Ketones Negativemg/dL (NEGATIVE) Urine Occult Blood Negative (NEGATIVE) Urine Nitrite Negative (NEGATIVE) Urine Bilirubin Negative (NEGATIVE) Urine Urobilinogen Normalmg/dL (NORMAL) Urine Leukocyte Esterase Small (NEGATIVE) Urine RBC 0-2/hpf (0-2) Urine WBC 0-5/hpf (0-5) Urine Epithelial Cells Few/hpf (NONE-MOD) Urine Crystals None seen (NONE SEEN) Urine Bacteria Few/hpf (NONE-FEW) Urine Hyaline Casts None/lpf (NONE) Urine Granular Casts None seen (NONE SEEN) Urine Waxy Casts None seen (NONE SEEN) Urine Red Blood Cell Casts None seen (NONE SEEN) Urine White Blood Cell Casts None seen (NONE SEEN) Urine Mucus None seen (None Seen) Urine Trichomonas None seen (NONE SEEN) Urine Yeast None (NONE SEEN) Urinalysis Comment None White Blood Count 7.7th/mm3 (3.8-10.1) Red Blood Count 4.12mil/mm3 (3.90-5.20) Hemoglobin 12.6g/dL (12.0-15.6) Hematocrit 38.4% (35.0-46.0) Mean Corpuscular Volume 93.2fL (81-100) Mean Corpuscular Hemoglobin 30.6pg (27.0-35.0) Mean Corpuscular Hemoglobin Concent 32.8% (32.0-37.0) Red Cell Distribution Width 14.2% (12.3-15.4) Platelet Count 267bil/L (150-400) Neutrophils (%) (Auto) 58.8% (40-74) Lymphocytes (%) (Auto) 25.6% (14-46) Monocytes (%) (Auto) 12.0% (4-12) Eosinophils (%) (Auto) 3.0% (0-5) Basophils (%) (Auto) 0.5% (0-3) Sodium Level 135mEq/L (134-144) Potassium Level 4.0mEq/L (3.5-5.2) Chloride Level 101mEq/L (97-108) Carbon Dioxide Level 23mmol/L (18-29) Blood Urea Nitrogen 13mg/dL (8-27) Creatinine 0.86mg/dL (0.57-1.00) Estimat Glomerular Filtration Rate 91mL/min (>59) Glucose Level 106mg/dL (60-99) Calcium Level 9.4mg/dL (8.5-10.1) Discharge Medications Discharge Medications Allopurinol (Allopurinol) 300 Mg Tablet 300 MG PO DAILY (Reported) Aspirin (Aspirin) 81 Mg Tablet 81 MG PO DAILY Prescribed by: SANJAY HEATH DO Atorvastatin (Lipitor) 40 Mg Tablet 40 MG PO DAILY Prescribed by: SANJAY HEATH DO Calcium Carbonate/Vitamin D3 (Calcium 500 + Vit D 200 Tablet) 1 Each Tablet 3 TAB PO DAILY (Reported) Clopidogrel (Clopidogrel) 75 Mg Tablet 75 MG PO DAILY (Reported) Cyanocobalamin (Vitamin B12) 500 Mcg Tablet 1,000 MCG PO every other day ( Reported) Famotidine (Pepcid) 20 Mg Tablet 20 MG PO DAILY (Reported) Gabapentin (Gabapentin) 300 Mg Capsule 300 MG PO TID (Reported) Metoprolol Succinate ER (Metoprolol Succinate ER) 25 Mg Tab.er.24h 25 MG PO HS ( Reported) Multivitamin,Therapeutic (Thera) 1 Each Tablet 1 EACH PO DAILYWM (Reported) [place]-3/Dha/Epa/Fish Oil (Fish Oil 1,000 mg Softgel) 1 Each Capsule 2 CAPSULE PO DAILY (Reported) Sennosides/Docusate Sodium (Senna-Docusate Sodium Tablet) 1 Each Tablet 1 EACH PO BID (Reported) Thiamine Mononitrate (Vitamin B-1) 100 Mg Tablet 100 MG PO DAILY (Reported) As needed Acetaminophen (Acetaminophen) 325 Mg Tablet 650 MG PO Q6H PRN PRN For Pain ( Reported) Amoxicillin (Amoxicillin) 500 Mg Tablet 2,000 MG PO ONCE PRN PRN dental appointment (Reported) Melatonin (Melatonin 1 mg Tablet) 1 Each Tablet 3 MG PO HS PRN PRN Insomnia ( Reported) Followup Plan Follow-up plan Continue medications as prescribed Follow up with primary care physician to discuss this hospitalization and help to arrange further thyroid evaluation. Discharge Diet: No restrictions Discharge Activity: No restrictions Follow-up Provider: Maureen Carter PA-C Follow-up with PCP in: 1 week Time spent 45 minutes copies to: Maureen Carter PA-C, Benjamin P DO Sep 18, 2016 19:01
[2016-09-18] MEDS ORDERED: ASPI-973 PO (19:03)
[2016-09-18] MEDS ORDERED: LIP40 PO (19:03)
--- NOTE | 2016-09-18 19:04 | PCM.DIMED ---
Discharge Instructions Date of Service Sep 18, 2016 Dates of Hospitalization Sep 16, 2016 at 21:27 Discharge Diagnosis Discharge Diagnosis Acute transient ischemic attack, POA, stable Migrain Headaches Hypertension, chronic, POA, stable Diet Discharge Diet: No restrictions Activity Discharge Activity: No restrictions Call your provider Call your provider for: Weakness (unilateral), Other (Other concerns for stroke or TIA) Patient Instructions Follow-up plan - Continue medications as prescribed. - Follow up with primary care physician to discuss this hospitalization and help to arrange further thyroid evaluation. Follow-up Provider: Maureen Carter PA-C Follow-up with PCP in: 1 week Derrell Sahu DO Sep 18, 2016 19:04
--- NOTE | 2016-09-18 19:22 | NUR ---
Discharge Patient given discharge orders. Patient given medication list with written times of next dose due. Patient given follow up instructions. Patient given informational packet. Patient family in room at time of discharge. Patient assisted to main entrance in wheelchair via [employer].
--- NOTE | 2016-09-18 19:37 | PCM.CHPMED ---
Subjective Date of Service: Sep 18, 2016 Provider requesting consult: Derrell Sahu DO Primary Physician: Admitting Physician: Kory Elliott MD Primary Care Physician: Maureen Carter PA-C Attending Physician: Kory Elliott MD Chief Complaint: Chief Complaint: headache, bilateral hand numbness, and facial numbness History of Present Illness: Neurology Consult Note Patient is an 81 year old female with history of hypertension and recent ischemic stroke on 08/11/16 who presented with headache, bilateral hand numbness , and facial numbness. Following her stroke in July, she had been discharged on Aspirin and Plavix for one month. She had completed dual antiplatelet therapy and transitioned to Plavix only. However, 5 days after stopping Aspirin, she suddenly noticed numbness in bilateral hands, frontal headache, and numbness of her nose and bilateral cheeks, with perioral numbness. She went to [facility] ED, where her symptoms resolved. She states they initially lasted 30 minutes, but intermittently recurred over the 4 hours she was in the ED. She was eventually sent home, where she began to notice the hand and face numbness returned. At this time, her daughter reports that she noticed the patient became disoriented and confused, and was unable to find her own bathroom. She noticed the patient was slurring her words at that time and brought her to [facility] ED. The patient denied focal weakness, vision changes, dizziness, fainting, nausea, vomiting, or falls. Brain CT was negative for any intracranial process. Carotid Doppler showed <50% bilateral internal carotid stenosis. MRI stroke protocol showed a moderate sized late subacute infarct of the left parietal lobe, chronic microvascular ischemic changes, 30% stenosis of the left internal carotid artery, and an enlarged nodular right thyroid lobe. The patient states this abnormal thyroid was detected on a previous scan and she is scheduled for a thyroid biopsy next week. Today, the patient reports that she is mostly at baseline, but still has some generalized weakness with associated difficulty walking, and has been working with PT. She denies focal leg weakness or balance issues. Her daughter states she has continued to have some difficulty with word-finding and mild confusion and memory issues today. She denies any history of palpitations. Review of Systems: Comprehensive review of systems conducted and was negative except for the pertinent positives listed above. H Past Medical History Ischemic stroke on 08/11/2016 Hypertension Surgical History Bilateral hip replacements Total hysterectomy Allergies: Coded Allergies: sumatriptan (Verified Allergy, Unknown, Due to CVA, 09/16/16) indomethacin (Verified Adverse Reaction, Unknown, Nausea, 09/16/16) Family History Family History Father had COPD and from complications Social History Hx Alcohol Use: NoHx Substance Use: No Smoking Status: Never Smoker Living Arrangement: with Family Exam Vital Signs Vital Sign - Last Date Time Temp Pulse Resp B/P Pulse Ox O2 Delivery O2 Flow Rate FiO2 09/18/16 13:59 36.4 73 18 142/68 95 Room Air Intake and Output 09/17/16 09/17/16 09/18/16 Cumulative From/Thru 15:00 23:00 07:00 09/16/16 19:00 - 09/18/16 06:51 Intake Total 1360 ml 200 ml 1910 ml Output Total 925 ml Balance 1360 ml 200 ml 985 ml Intake Oral 1350 ml 200 ml 1900 ml IV Total 10 ml 10 ml Output Urine Total 925 ml # Voids 6 3 9 # Bowel Movements 1 1 Additional Information: General: Alert, Oriented X3, Cooperative, No acute distress Head: Normocephalic, atraumatic. External ears normal. Eyes: PERRLA, EOMI. Anicteric sclerae. Mouth: Mouth normal, Mucous membranes moist/pink Neck: Neck supple with full range of motion. Chest& Lungs: Clear to auscultation bilaterally with no crackles, wheezes, or rhonchi. Cardiovascular: Regular rate/rhythm, Normal S1, Normal S2, No murmurs/rubs/ gallops Abdomen: Non-tender, Non-distended, No masses, Normoactive bowel tones, Soft Musculoskeletal: Normal range of motion Extremities: No cyanosis/clubbing/edema bilaterally Neuro: Speech normal, but some difficulty with word finding. Strength 4/4 bilateral upper and lower extremities, Cranial Nerves 2-12 Intact, Sensation Intact, Finger-Nose and Heel-Patel normal, Reflexes Normal, Normal Gait Lab and Diagnostics Result Diagram: [id number]/17/1652509/[id number]/16525 Assessment & Plan Assessment Patient is an 81 year old female with history of hypertension and recent ischemic stroke on 08/11/16 who presented with headache, bilateral hand numbness , and facial numbness, now mostly resolved. Transient ischemic attack, acute. The patients symptoms of facial numbness and bilateral hand numbness have mostly resolved, although she reportedly remains slightly confused. It is difficult to say with complete certainty whether these are TIA symptoms but given her risk factors, this should be treated as a TIA. She has a suspicious thyroid mass which will be biopsied next week; if this is a malignant process, it may be contributing to a hypercoagulable state in this patient, which may cause TIA/CVA in a patient on antiplatelet therapy. We recommended to the patient that she complete her thyroid workup. At this time, as she experienced symptoms on Plavix, we recommend dual antiplatelet therapy. She is currently on atorvastatin 20 mg. We recommend maximizing statin therapy at 80 mg. As it has been over 24 hours since initial presentation, we recommend blood pressure control at a goal of 140/90. - Follow up for thyroid biopsy - Continue aspirin 81 mg and Plavix 75 mg - Increase atorvastatin to 80 mg qhs - BP control, goal <140/90 - Avoid Imitrex for migraines - Outpatient physical therapy - Follow up with PCP in 1 week - Follow up with Dr. Javed after completing the thyroid biopsy Problems: Pain Evaluation: Adequate Pain Control GI Prophylaxis: H2 yani, Not indicated VTE Prophylaxis: Sub-Q Heparin (Unfractionated) VTE Mechanical Devices: Intermittant Pneumatic CD Resuscitation Status: CPR: Attempt Resuscitation Ean Lopez Sep 18, 2016 19:36
== END 2016-09-18 19:31 | disposition home or self-care (01) ==
LOC: SED 18:52 → MPC 21:27
PROVIDERS: ADMIT Hospitalist; ATTEND Hospitalist
DX: G45.9 Transient cerebral ischemic attack, unspecified (principal); I10 Essential (primary) hypertension; G43.909 Migraine, unspecified, not intractable, without status migrainosus; E04.1 Nontoxic single thyroid nodule; R20.0 Anesthesia of skin; Z79.82 Long term (current) use of aspirin; Z79.02 Long term (current) use of antithrombotics/antiplatelets; Z88.8 Allergy status to other drugs, medicaments and biological substances; Z96.643 Presence of artificial hip joint, bilateral; Z86.73 Personal history of transient ischemic attack (TIA), and cerebral infarction without residual deficits; Z90.710 Acquired absence of both cervix and uterus
CPT/HCPCS: 36415; 70450; 70549; 70553; 71010; 80048; 80053; 80061; 81001; 83036; 83735; 84484; 85025; 85610; 92610; 93005; 93880; 97161; 97166; 99285; A9585; C8929; G0378; G8978; G8979; G8980; G8996; G8997; G8998; J1644